=== PATIENT | male | born 1935 | race Caucasian/White ===

== ENCOUNTER 2017-06-11 10:30 | Observation (INO) | payer MEDICARE, OTHER ==
[~2017-06-11] VITALS: Ht 182.9 cm; Wt 81.6 kg
[2017-06-11] VITALS (7 sets, daily range): BP systolic 87–116; BP diastolic 59–91
[2017-06-11 11:24] LABS: Basophils # (auto) 0.1 uL; Basophils % (auto) 1.1 % (0.0-2.0); Eosinophils # (auto) 0.2 uL; Eosinophils % (auto) 2.5 % (0.0-7.0); Hematocrit 43.8 % (41.0-53.0); Hemoglobin 14.2 g/dL (13.5-17.5); Lymphocytes # (auto) 3.1 uL; Lymphocytes % (auto) 34.1 % (10.0-50.0); Mean Corpuscular Hemoglobin 28.2 pg (28.0-32.0); Mean Corpuscular Hgb Conc. 32.5 g/dL (32.0-36.0); Mean Corpuscular Volume 86.8 fL (80.0-100.0); Monocytes # (auto) 0.6 uL; Monocytes % (auto) 6.2 % (0.0-12.0); Neutrophils # (auto) 5.1 uL; Neutrophils % (auto) 56.1 % (37.0-80.0); Nucleated Red Blood Cells % 0.1 %; Platelet Count (auto) 199 10^3/uL (140-450); Red Blood Cells 5.05 10^6/uL (4.5-5.90); Red Cell Distribution Width 14.8 % (11.8-14.3); White Blood Cell 9.1 10^3/uL (4.4-10.8)
[2017-06-11] MEDS ORDERED: LORazepam 2MG/ML-1ML VIAL ONE (11:24)
[2017-06-11 11:29] LABS: Alanine Aminotransferase 16 U/L (16-61); Albumin 3.3 g/dL (3.4-5.0); Alkaline Phosphatase 47 U/L (45-117); Anion Gap 9 (5-15); Aspartate Aminotransferase 27 U/L (15-37); BUN/Creatinine Ratio 16.1; Bilirubin, Total 0.6 mg/dL (0.2-1.0); Blood Urea Nitrogen 20 mg/dL (7-18); Calcium 8.1 mg/dL (8.5-10.1); Carbon Dioxide 18 mmol/L (21-32); Chloride 113 mmol/L (98-107); GFR African American 72 mL/min; GFR Non-African American 60 mL/min; Glucose 170 mg/dL (74-106); Potassium 4.5 mmol/L (3.5-5.1); Sodium 140 mmol/L (136-145); Total Protein 6.6 g/dL (6.4-8.2)
[2017-06-11] MEDS ORDERED: LORazepam 2MG/ML-1ML VIAL IV ONE (11:30)
[2017-06-11] MEDS ORDERED: NOREPINEPHRINE 16 MG/500ML KIT 500 ML IV ONE (11:51)
[2017-06-11] MEDS ORDERED: SODIUM CHLORIDE 0.9% 1,000 ML IV ONE ×4 (12:00→15:30)
[2017-06-11] MEDS ORDERED: NOREPINEPHRINE 16 MG/500ML KIT 500 ML IV SCH (12:15)
[2017-06-11 12:29] LABS: INR 2.18 (0.9-1.15); Prothrombin Time 23.9 sec (9.37-12.3)
[2017-06-11 13:08] LABS: Lactic Acid w/Reflex 5.3 mmol/L (0.4-2.0)
[2017-06-11 13:23] LABS: Urine Bacteria NONE SEEN /hpf (None Seen); Urine Blood 2+ /uL (Negative); Urine Specific Gravity 1.016 (1.001-1.035); Urine WBC 2 /hpf (0 - 3)
[2017-06-11 13:35] LABS: Alcohol, Urine < 3.0 mg/dL (0-5); Amphetamine Screen, Urine NEGATIVE (NEGATIVE); Barbiturate Scree,Urine NEGATIVE (NEGATIVE); Benzodiazephine Screen, Urine NEGATIVE (NEGATIVE); Cannabinoid Screen, Urine NEGATIVE (NEGATIVE); Cocaine Screen, Urine NEGATIVE (NEGATIVE); Opiate Scree,Urine NEGATIVE (NEGATIVE); Phencyclidine Screen, Urine NEGATIVE (NEGATIVE)
[2017-06-11] MEDS ORDERED: IOHEXOL 350 MG/ML 100ML IJ ONE (13:47)
[2017-06-11] MEDS ORDERED: PHYTONADIONE (VIT K)10 MG/ML 1ML VIAL IV ONE (14:15)
[2017-06-11] MEDS ORDERED: PHYTONADIONE (VIT K)10 MG/ML 1ML VIAL SUBCUT ONE (14:30)
[2017-06-11] MEDS ORDERED: MORPHINE SULFATE INJECTION 1 ML ONE ×2 (14:47→16:35)
[2017-06-11] MEDS ORDERED: ONDANSETRON HCL 4 MG/2 ML VIAL ONE (14:47)
[2017-06-11] MEDS ORDERED: ONDANSETRON HCL 4 MG/2 ML VIAL IV ONE ×2 (15:00→16:30)
[2017-06-11] MEDS ORDERED: MORPHINE SULFATE 8mg/ml INJ SDV IV ONE ×2 (15:00→16:30)
== END 2017-06-11 17:46 | disposition short-term general hospital (02) | DRG 312 ==
LOC: EDBD 10:30 → ER 10:30 → EDSEX 10:30 → OVERFLOW 11:40 → ER 17:46
PROVIDERS: ADMIT Family Medicine; ATTEND Family Medicine
DX: R55 Syncope and collapse (principal); I63.9 Cerebral infarction, unspecified; I31.2 Hemopericardium, not elsewhere classified; I95.9 Hypotension, unspecified; R56.9 Unspecified convulsions; I48.91 Unspecified atrial fibrillation; I10 Essential (primary) hypertension; Z85.028 Personal history of other malignant neoplasm of stomach; E78.5 Hyperlipidemia, unspecified; Z79.01 Long term (current) use of anticoagulants; R79.1 Abnormal coagulation profile; Z86.73 Personal history of transient ischemic attack (TIA), and cerebral infarction without residual deficits; Z85.038 Personal history of other malignant neoplasm of large intestine
CPT/HCPCS: 36415; 36600; 70450; 71045; 71275; 74176; 80053; 80307; 81001; 82550; 82805; 82962; 83605; 83735; 84484; 85025; 85379; 85610; 85730; 86850; 86900; 86901; 86920; 87040; 93005; 93306; 96365; 96366; 96372; 96375; 96376; 99285; G0378; J2060; J2270; J2405; J3430; J7030; J7040; P9016; P9017; Q9967; 36430